=== PATIENT | male | born 1965 | race Caucasian/White ===

== ENCOUNTER → 2021-09-07 | Outpatient (CLI) | payer SELFPAY | LOC: LAB SHORT 15:00 | DX: D48.5 Neoplasm of uncertain behavior of skin (principal); D22.5 Melanocytic nevi of trunk | CPT/HCPCS: 88305 ==

== ENCOUNTER 2024-09-13 09:35 | Day surgery (SDC) | payer BC ==
[~2024-09-13] VITALS: Ht 185.4 cm; Wt 119.5 kg
[2024-09-13] MEDS ORDERED: Atarax10 MG PO (09:51)
[2024-09-13] MEDS ORDERED: Vyvanse20 MG PO (09:51)
[2024-09-13] MEDS ORDERED: TADALAFIL10 MG PO (09:51)
[2024-09-13] MEDS ORDERED: Lactated Ringer's 1,000 ML IV ONE (10:21)
[2024-09-13] MEDS ORDERED: propofoL 40 ML IV ONE (11:07)
[2024-09-13] MEDS ORDERED: propofoL 20 ML IV ONE (11:36)
[2024-09-13 12:08] VITALS: BP 122/74
== END 2024-09-13 12:16 | disposition home or self-care (01) ==
LOC: ORSCSDS 09:35
DX: Z12.11 Encounter for screening for malignant neoplasm of colon (principal); D12.5 Benign neoplasm of sigmoid colon; K62.1 Rectal polyp; E78.2 Mixed hyperlipidemia
CPT/HCPCS: 88305; J2704

== ENCOUNTER 2024-12-18 06:04 | Day surgery (SDC) | payer BC ==
[2024-12-18] VITALS (13 sets, daily range): BP systolic 132–165; BP diastolic 66–97
[~2024-12-18] VITALS: Ht 185.4 cm; Wt 119.2 kg
[~2024-12-18 06:04] MED LIST: Atarax10 MG PO; DEPO-TESTO200 MG/1 M IM; TADALAFIL10 MG PO; Vyvanse20 MG PO
[2024-12-18] MEDS ORDERED: Lactated Ringer's 1,000 ML IV SCH (06:15)
--- NOTE | 2024-12-18 07:06 | NUR ---
Abrasions noted to abdomen stretch rubi after clip prep with BD clipper and shave get used. Abrasions only noted to where stretch rubi present on abdomen. Patient notified. Dr. Molina notified.
[2024-12-18] MEDS ORDERED: Dexamethasone Sod Phos 10 MG/ML 1ML VIAL ONE (07:08)
[2024-12-18] MEDS ORDERED: Ondansetron HCl 2 MG / ML 2ML Vial ONE (07:08)
[2024-12-18] MEDS ORDERED: Rocuronium Bromide 10 MG/ML 5ML Injection IV ONE (07:08)
[2024-12-18] MEDS ORDERED: FentaNYL Citrate 50 MCG/ML 2 ML Injection ONE ×2 (07:10→10:06)
[2024-12-18] MEDS ORDERED: propofoL 20 ML IV ONE (07:10)
[2024-12-18] MEDS ORDERED: Lidocaine HCl 4% 5 ML SDA ONE (07:13)
--- NOTE | 2024-12-18 07:16 | NUR ---
History, Chart, Medications and Allergies reviewed before start of procedure. Patient reports completing Chlorhexadine shower X2 prior to admission to hospital. Patient confirms NPO status and agrees with scheduled surgery. Pre-Op teaching done. Pt verbalizes understanding. PATIENT AGREES WITH PLANNED SURGERY.Patient States Post-Procedure ride home has been arranged.
[2024-12-18] MEDS ORDERED: Bupivacaine 0.5% W/EPI 1:200000 SDV 30 ML Vial ONE (07:21)
[2024-12-18] MEDS ORDERED: Midazolam HCl 1MG / ML 2ML Vial ONE (07:34)
[2024-12-18] MEDS ORDERED: Midazolam HCl 1MG / ML 2ML Vial IV ONE (07:35)
[2024-12-18] MEDS ORDERED: Ketorolac Tromethamine 30mg Vial ONE (07:36)
[2024-12-18] MEDS ORDERED: Sugammadex Sodium 200 MG/2ML SDV (100 MG/ML) ONE (07:54)
[2024-12-18] MEDS ORDERED: HYDROcodone 5-APAP 325 TAB PO PRN (10:05)
--- NOTE | 2024-12-18 11:33 | NUR ---
Discharge instructions reviewed with patient. Patient verbalizes understanding. Copy given to patient to take home. Prescription placed electronically. Dressing's X3 c/d/i. Patient States Post-Procedure ride home has been arranged. Discharged via wheelchair to private car for ride home.
== END 2024-12-18 11:30 | disposition home or self-care (01) ==
LOC: ORSCMMR 06:04 → ORD 07:30 → ORSCMMR 11:30
PROVIDERS: Surgery
PROC: 8E0W4CZ Robotic Assisted Procedure of Trunk Region, Percutaneous Endoscopic Approach (ICD-10-PCS; principal; 2024-12-18 07:30)
PROC: 0YQA4ZZ Repair Bilateral Inguinal Region, Percutaneous Endoscopic Approach (ICD-10-PCS; principal; 2024-12-18 07:30)
DX: K40.00 Bilateral inguinal hernia, with obstruction, without gangrene, not specified as recurrent (principal); K66.0 Peritoneal adhesions (postprocedural) (postinfection); E78.5 Hyperlipidemia, unspecified; E66.9 Obesity, unspecified; Z68.34 Body mass index [BMI] 34.0-34.9, adult; Z79.899 Other long term (current) drug therapy
CPT/HCPCS: A9270; C1781; J1100; J1885; J2003; J2250; J2405; J2704; J3010; J7120